=== PATIENT | female | born 1995 | race Caucasian/White ===

== ENCOUNTER 2019-05-18 07:12 | Inpatient (IN) ==
--- NOTE | 2019-05-17 08:47 | PAT Medication Instructions ---
Medication Instructions Date of Service May 17, 2019 Home Medications aspirin [Aspir-81] 81 mg PO DAILY doxylamine succinate [Unisom (doxylamine)] 25 mg PO HS insulin NPH isoph U-100 human [Humulin N NPH Insulin KwikPen] 50 unit SUBCUT BID insulin lispro [Admelog SoloStar U-100 Insulin] 23 unit SUBCUT WM ondansetron HCl [Zofran] 4 mg PO BID PRN ASK your prescriber and surgeon aspirin [Aspir-81] 81 mg PO DAILY DO NOT take the morning of surgery insulin lispro [Admelog SoloStar U-100 Insulin] 23 unit SUBCUT WM Take morning of surgery With a small sip of water, OTHERWISE NOTHING TO EAT OR DRINK AFTER MIDNIGHT: ondansetron HCl [Zofran] 4 mg PO BID PRN (if needed) Take evening before surgery doxylamine succinate [Unisom (doxylamine)] 25 mg PO HS insulin NPH isoph U-100 human [Humulin N NPH Insulin KwikPen] 50 unit SUBCUT BID insulin lispro [Admelog SoloStar U-100 Insulin] 23 unit SUBCUT WM ondansetron HCl [Zofran] 4 mg PO BID PRN (if needed) Insulin Dependent Diabetic Patients * Test your blood sugar the morning of surgery * If Blood Sugar is GREATER THAN 150, take HALF of your regular dose of: insulin NPH isoph U-100 human [Humulin N NPH Insulin KwikPen] take 25 units * If Blood Sugar is LESS THAN 150, DO NOT TAKE ANY: insulin NPH isoph U-100 human [Humulin N NPH Insulin KwikPen] Other Notes If you have any questions please call us at [phone] or [phone] or [phone] or [phone]
--- NOTE | 2019-05-17 09:30 | Anesthesiology Consultation ---
Date of Service May 17, 2019 Assessment & Plan (1) Encounter for pre-operative examination: - ASA: Per patient, was on ASA during for increased risk of pre- eclampsia which was discontinued by OB 05/16/19. Chart Review Chart Review: Pending: Refer to Additional Notes / Consult section (pending preop testing (done 05/17/19 [facility])) and Patient seen in Pre Admission Testing Teaching & Discussion Pre-Anesthesia Teaching/Discussion Notes: Instructed NPO after midnight before surgery,except medications with 15 cc of water. Medication instructions provided according to the PAT guidelines. History Surgery Operation Date: 05/18/19 09:10 Proposed Procedures p Primary Low Transverse Section in LD - Kingsley Rodney MD Height/Weight Height: 5 ft 6 in Weight: 130 kg Allergies Allergy/AdvReac Type Severity Reaction Status Date / Time metformin AdvReac Intermediate NAUSEA Verified 05/17/19 09:28 Medications Home Medications Medication Instructions Recorded Confirmed Last Taken aspirin [Aspir-81] 81 mg PO DAILY 05/16/19 05/16/19 Unknown doxylamine succinate [Unisom 25 mg PO HS 05/16/19 05/16/19 Unknown (doxylamine)] insulin NPH isoph U-100 human 50 unit SUBCUT BID 05/16/19 05/16/19 Unknown [Humulin N NPH Insulin KwikPen] insulin lispro [Admelog SoloStar 23 unit SUBCUT WM 05/16/19 05/16/19 Unknown U-100 Insulin] ondansetron HCl [Zofran] 4 mg PO BID PRN 05/16/19 05/16/19 Unknown Past Medical History Medical History Depression Diabetes Type II/diagnosed at age 16 but did not start insulin until Exercise-induced asthma stable GERD (gastroesophageal reflux disease) related Hx of migraines Morbid obesity Exercise / Class Metabolic Activity III < 4 Walking/Shop/Light housework Past Family History Family History Mother Family history of diabetes mellitus Uncle Family history of diabetes mellitus Past Surgical History Surgical History History of colonoscopy History of endoscopic sinus surgery History of esophagogastroduodenoscopy (EGD) History of Isabella fundoplication 7 YEARS AGO Past Anesthesia History No Hx of Anesthesia Complications and No Family Hx of Anesthesia Complications History of PONV No Hx of PONV and Hx of Motion Sickness (occasional) Social History Smoking Status: Former smoker tobacco type: cigarettes Do You Dip or Chew Tobacco: No Smoking End Date: QUIT SMOKING 8 MONTHS AGO Hx Alcohol Use: No Hx Substance Use: No substance use type: does not use Review of Systems URI symptoms significantly improved. Mild residual, dry cough. Patient denies chest pain, shortness of breath, cough, wheezing, palpitations. Physical Exam Vital Signs VITALS BP 135/84 P 94 TEMP 98.3 SP02 96%ra RESP 16 PHYSICAL Full neck and c-spine range of motion. Full TMJ range of motion. TMD 4 finger breaths Mallampati Score 1 Dentition: intact Lungs: clear throughout to auscultation Cardiac: regular rate and rhythm, no murmurs noted Spine: normal Carotid arteries: negative bruit Extremities: no edema Large tonsils Short, thick neck
[2019-05-17 10:39] LABS: Basophils # (auto) 0.01 K/uL (0-0.2); Basophils % (auto) 0.1 %; Eosinophils # (auto) 0.02 K/uL (0-0.5); Eosinophils % (auto) 0.2 %; Hematocrit (blood only) 38.5 % (37-47); Hemoglobin 13.2 g/dL (12.0-16.0); Immature Granulocytes # (auto) 0.02 K/uL (0.00-0.02); Immature Granulocytes % (auto) 0.2 %; Lymphocytes # (auto) 1.64 K/uL (1.2-3.4); Lymphocytes % (auto) 20.4 %; Mean Corpuscular Hemoglobin 28.7 pg (25-34); Mean Corpuscular Hgb Conc 34.3 g/dL (32-36); Mean Corpuscular Volume 83.7 fL (80-100); Monocytes # (auto) 0.57 K/uL (0.11-0.59); Monocytes % (auto) 7.1 %; Neutrophils # (auto) 5.79 K/uL (1.4-6.5); Platelet Count 183 K/uL (130-400); RDW Coefficient of Variation 13.4 % (11.5-14.5); RDW Standard Deviation 40.4 fL (36.4-46.3); White Blood Count 8.05 K/uL (4.8-10.8)
[2019-05-17 10:43] LABS: Albumin Level 2.5 gm/dl (3.4-5.0); BUN Creatinine Ratio 22.3 (10-20); Creatinine Clr Calc Pharmacy 169.4 ml/min; Est GFR (African American) 137.8; Est GFR (Non-African American) 118.9; Potassium 4.1 mmol/L (3.5-5.1)
[2019-05-17 10:46] LABS: Albumin Globulin Ratio 0.6 (0.9-2); Bilirubin,Total 0.5 mg/dl (0.2-1); Total Protein 6.5 gm/dl (6.4-8.2)
[2019-05-17 11:12] LABS: Estimated Average Glucose 186 mg/dl; Hemoglobin A1C 8.1 % (4.5-5.6)
[~2019-05-18 07:12] MED LIST: CEFAZOLIN 3,000 MG in DEXTROSE 5% 50 ML IV SCH; CITRIC ACID/SODIUM CITRATE 15 ML UDC PO SCH; LACTATED RINGER'S 1,000 ML IV SCH
--- NOTE | 2019-05-18 07:45 | History & Physical Bridge Note ---
Date of Service May 18, 2019 History & Physical Bridge Note I have examined the patient, reviewed the History & Physical and in the interval since the performance of the History & Physical I have noted the following changes of clinical significance: no changes noted
[2019-05-18] MEDS ORDERED: LACTATED RINGER'S 1,000 ML IV SCH ×3 (08:15→12:43)
[2019-05-18 08:40] LABS: Basophils # (auto) 0.01 K/uL (0-0.2); Basophils % (auto) 0.1 %; Eosinophils # (auto) 0.04 K/uL (0-0.5); Eosinophils % (auto) 0.5 %; Hematocrit (blood only) 37.9 % (37-47); Hemoglobin 12.9 g/dL (12.0-16.0); Immature Granulocytes # (auto) 0.03 K/uL (0.00-0.02); Immature Granulocytes % (auto) 0.3 %; Lymphocytes # (auto) 1.87 K/uL (1.2-3.4); Lymphocytes % (auto) 21.2 %; Mean Corpuscular Hemoglobin 28.5 pg (25-34); Mean Corpuscular Volume 83.8 fL (80-100); Mean Platelet Volume 10.7 fL (7.4-10.4); Monocytes # (auto) 0.87 K/uL (0.11-0.59); Monocytes % (auto) 9.8 %; Neutrophils # (auto) 6.02 K/uL (1.4-6.5); Neutrophils % (auto) 68.1 %; Platelet Count 169 K/uL (130-400); RDW Coefficient of Variation 13.5 % (11.5-14.5); RDW Standard Deviation 40.4 fL (36.4-46.3); Red Blood Count 4.52 M/uL (4.2-5.4); White Blood Count 8.84 K/uL (4.8-10.8)
[2019-05-18] MEDS ORDERED: CEFAZOLIN 3000MG 65 ML IV SCH (09:00)
[2019-05-18] MEDS ORDERED: MoRPHine SULFATE PF 1 MG/ML 10 ML AMP/VIAL ONE (10:33)
[2019-05-18] MEDS ORDERED: OXYTOCIN 10 UNITS/ML VIAL ONE (11:56)
[2019-05-18] MEDS ORDERED: ePHEDrine sulfate 50 MG/ML AMP ONE (11:56)
[2019-05-18] MEDS ORDERED: ONDANSETRON INJ 2 MG/ML 2 ML VIAL ONE (11:57)
[2019-05-18] MEDS ORDERED: PHENYLEPHRINE HCL 10 MG/ML VIAL ONE (11:57)
--- NOTE | 2019-05-18 12:09 | Post Operative Brief Note ---
Immediate Post Op Note v1 Date of Surgery May 18, 2019 Pre & Post Diagnosis Operation Date: 05/18/19 09:10 <No data on this case meets the specified criteria> I identified the patient and participated in the time-out.: Yes Procedure Operation Date: 05/18/19 09:10 <No data on this case meets the specified criteria> Surgeon Kingsley Rodney MD Baler Operator Vielka MULTANI Estimated Blood Loss 600 Findings Consistent with Post-Op Diagnosis
[2019-05-18] MEDS ORDERED: NALOXONE HCL 0.4 MG/1 ML VIAL/CARP IV PRN (12:21)
[2019-05-18] MEDS ORDERED: HYDROmorphone INJ 0.5 MG/0.5 ML SYR IV PRN (12:21)
[2019-05-18] MEDS ORDERED: ePHEDrine sulfate 50 MG/ML AMP IV PRN (12:21)
[2019-05-18] MEDS ORDERED: MoRPHine SULFATE PF 1 MG/ML 10 ML AMP/VIAL INT SPINAL ONE (12:21)
[2019-05-18] MEDS ORDERED: PROMETHAZINE HCL 25 MG in SODIUM CHLORIDE 0.9% 50 ML IV PRN (12:21)
[2019-05-18] MEDS ORDERED: NALOXONE HCL 1 MG in SODIUM CHLORIDE 0.9% 1000ML 1,000 ML IV PRN (12:21)
[2019-05-18] MEDS ORDERED: NALOXONE HCL 0.08 MG in SYRINGE 1.8 ML IV PRN (12:21)
[2019-05-18] MEDS ORDERED: MEPERIDINE HCL 25 MG/ML CARP IV PRN (12:21)
[2019-05-18] MEDS ORDERED: MoRPHine SULFATE 2 MG/ML CARP IV PRN (12:21)
[2019-05-18] MEDS ORDERED: METOCLOPRAMIDE HCL 20 MG in SODIUM CHLORIDE 0.9% 50 ML IV PRN (12:21)
[2019-05-18] MEDS ORDERED: LACTATED RINGER'S 500 ML IV PRN (12:21)
[2019-05-18] MEDS ORDERED: ONDANSETRON INJ 2 MG/ML 2 ML VIAL IV PRN (12:21)
[2019-05-18] MEDS ORDERED: SODIUM CHLORIDE 0.9% 1000ML 1,000 ML IV SCH (12:30)
[2019-05-18] MEDS ORDERED: DC INTRASPINAL MORPHINE SCH (12:30)
[2019-05-18] MEDS ORDERED: NO NARCOTICS OR SEDATIVES SCH (12:30)
[2019-05-18] MEDS ORDERED: SENNA 8.6 MG TAB PO PRN (12:43)
[2019-05-18] MEDS ORDERED: MAGNESIUM HYDROXIDE SUSP 30 ML UDC PO PRN (12:43)
[2019-05-18] MEDS ORDERED: BENZOCAINE 20% AER SPR 82.5 GM CAN EXT PRN (12:43)
[2019-05-18] MEDS ORDERED: SUPERCREAM 0.870% 15 GM JAR EXT PRN (12:43)
[2019-05-18] MEDS ORDERED: DIPHTHERIA/TETANUS/PERTUSSIS 0.5 ML SYR/VIAL IM ONE (12:43)
[2019-05-18] MEDS ORDERED: HYDROCORTISONE ACETATE 25 MG SUPP PR PRN (12:43)
[2019-05-18] MEDS ORDERED: PHARMACY GLYCEMIC MGMT CONSULT PRN (12:47)
[2019-05-18] MEDS: KETOROLAC 30 MG/ML VIAL IV PRN ×2 (12:55→22:28)
[2019-05-18] MEDS: DiphenhydrAMINE HCL 50 MG/ML VIAL IV PRN ×2 (12:55→18:34)
[2019-05-18] MEDS ORDERED: DEXTROSE 50% 50 ML SYRINGE IV PRN (13:00)
[2019-05-18] MEDS ORDERED: GLUCOSE 10 TABS/TUBE PO PRN (13:00)
[2019-05-18] MEDS ORDERED: GLUCAGON FOR INJ 1 MG VIAL SQ PRN (13:00)
[2019-05-18] MEDS ORDERED: CARBOHYDRATES FOR HYPOGLYCEMIA PO PRN (13:00)
[2019-05-18] MEDS ORDERED: GLUCOSE 40% GEL 15 GM TUBE PO PRN (13:00)
--- NOTE | 2019-05-18 13:12 | Anesthesiology Progress Note ---
Date of Service May 18, 2019 Anesthesia Post Procedure Vital Signs Vital Signs: Temp Pulse Resp BP Pulse Ox 05/18/19 13:08 76 98 05/18/19 13:07 75 122/65 05/18/19 13:03 73 98 05/18/19 12:58 75 98 05/18/19 12:57 77 128/68 05/18/19 12:53 83 97 05/18/19 12:48 82 97 05/18/19 12:47 87 125/62 05/18/19 12:43 79 97 05/18/19 12:38 78 97 05/18/19 12:37 88 135/64 05/18/19 12:33 84 98 05/18/19 12:28 81 97 05/18/19 12:27 75 121/65 05/18/19 12:23 86 96 05/18/19 12:18 85 97 05/18/19 12:13 89 132/64 96 05/18/19 08:38 37.0 C 93 H 22 134/85 05/18/19 07:38 37.0 C 93 H 22 134/85 Transfer of Care Handoff Completed per policy Notes Mental Status: alert / awake / arousable and participated in evaluation Patient Amnestic to Procedure: Yes Nausea / Vomiting: adequately controlled Pain: adequately controlled Airway Patency, RR, SpO2: stable & adequate BP & HR: stable & adequate Hydration State: stable & adequate Neuraxial Anesthesia: was administered and sensory block is resolving Anesthetic Complications: no major complications apparent
--- NOTE | 2019-05-18 14:15 | Operative Report ---
DATE OF OPERATION: 05/18/2019 PREOPERATIVE DIAGNOSIS: Primary section for macrosomia. POSTOPERATIVE DIAGNOSIS: Primary section for macrosomia. PROCEDURE: Primary section, low segment transverse. SURGEON: Kingsley Rodney MD. RETAIL ZONE SPECIALIST: RANGEL Washington. ANESTHESIA: Spinal with Duramorph. COMPLICATIONS: None. FINDINGS: Live male, Apgars 9 and 9, weight 10 pounds 2 ounces CLINICAL HISTORY DESCRIPTION: The patient is a 24-year-old female, para 0-0-0-0, at 39 weeks and 1 day with a history of pregestational diabetes, on insulin with a recent ultrasound revealing macrosomia almost greater than 4500 grams. The patient opted for elective primary section versus a trial of labor. The patient was given informed consent regarding the risks, benefits and alternatives of both procedures. She was given antibiotics preop and a timeout was called prior to the start of the procedure. DESCRIPTION OF PROCEDURE: Under satisfactory spinal anesthesia, the patient was prepped and draped in the usual sterile fashion. A low Pfannenstiel incision was made entering into the abdominal cavity in successive layers. Upon entering into the abdominal layers, pickups with teeth and Metzenbaums were then used to develop a bladder flap. This was then sharply dissected down. A low segment transverse incision over the lower uterine segment was made. The incision was then widened in the AP diameter. The amniotic sac was nicked and found to be clear fluid. The was then delivered from the vertex presentation with the aid of fundal pressure delivering a live male. Delayed cord clamping was accomplished using 1-minute time. Apgars were 9 and 9, and weight was 10 pounds 2 ounces. Cord blood was obtained. Placenta was then delivered manually and intact. Uterus was then exteriorized. Ring forceps were then placed on both angles in the inferior margin, another ring was used to dilate the cervix. Uterus was closed in a double layer closure with 0 Vicryl suture in a continuous interlocking fashion followed by a second imbricating suture of 0 Vicryl suture. No active bleeding was noted. Tubes, ovaries bilaterally were found to be within normal limits. Contents of the pelvic and abdominal cavity were then irrigated until clear. Lower uterine segment was inspected, no active bleeding. Uterus was placed back into the normal anatomical position. No active bleeding noted. The fascia was then reapproximated from both ends using #1 Vicryl suture in a continuous fashion. Subcuticular space was irrigated. Bleeders were cauterized and the subcuticular layer was closed with 3-0 plain suture and the skin was then reapproximated with 4-0 Monocryl suture. Steri-Strips were applied along with SYLIWA dressing. Clear urine was noted from the [facility]. Estimated blood loss 600 mL. The final sponge, needle and instrument counts being correct, the patient was then placed supine on a stretcher and taken to recovery room in stable condition. I attest to the content of the Intraoperative Record and any orders documented therein. Any exception s are noted below.
[2019-05-18] MEDS: SIMETHICONE 80 MG CHEW PO SCH ×2 (14:19→20:47)
[2019-05-18] MEDS: NALBUPHINE HCL INJ 10 MG/ML AMP IV PRN (14:29)
--- NOTE | 2019-05-18 15:17 | Pharmacy Report ---
Glycemic Control Consultation - Date of Service May 18, 2019 - Scope Scope: Glycemic Pharmacist consulted by BONITA Washington on 05/18 for glycemic control and to write orders per [facility] inpatient glycemic control protocol - Objective Weight: 129.964 kg Accuchecks BSG (last 24hrs): 05/18/19 05/18/19 07:53 12:06 POC Glucose 104 H 102 H HbA1c: Hemoglobin A1c 8.1 % (4.5-5.6) H 05/17/19 09:35 - Recent Pertinent Medications Outpatient Anti-diabetic Regimen: * Regimen during : * NPH 50 units BID * Admelog 23 units with meals * Regimen pre-: * None; although patient reports being on metformin and then glipizide prior to this * A1c = 8.1 % 05/17/19 * Somewhat unreliable as this was during Risk Factors for Insulin Resistance: * Recent Surgery: POD 0 s/p * Diet: NPO - Assessment & Plan Assessment & Plan: ASSESSMENT: * 24 y/o female, para 0-0-0-0, admitted for elective , at 39 wks 1 day with history of T2DM. She reports taking basal/bolus insulin during , that was initiated when . Pre- diabetes treatment includes a few trials of orals (metformin and then glipizide 10 mg) and then not taking anything due to not having follow-up. She currently follows with the [facility] clinic at [facility]. * Anticipate little to no insulin needs 24 hours after delivery, although not as drastic of a reduction that is typically seen after laboring. Patient plans to breastfeed so this will increase insulin sensitivity even more. * Will plan for correctional insulin only for now, with overnight checks to closely monitor BSGs. Conservative basal dosing to be initiated only if BSGs become elevated. PLAN FOR INPATIENT GLYCEMIC CONTROL: * Basal insulin - hold during immediate period * If BSGs 180 mg/dL x 2, give Lantus 15 units x 1 * Bolus insulin * NovoLog per scale ACHS or Q6hrs while NPO + 00,04 checks * Goal Range: Low 110 mg/dL - High 140 mg/dL * Correction Factor: 25 mg/dL/unit * Nutritional / Prandial insulin per carb ratio of 1 unit per - grams CHO consumed * Please note that the plan above was derived based on current level of insulin resistance and hospital stress. These recommendations are appropriate for inpatient admission only. Plan of care upon discharge will need to be reassessed to avoid potential outpatient hypo/hyperglycemia. Thank you.
[2019-05-18] MEDS: INSULIN ASPART 100 UNITS/ML 3 ML PEN SC SCH ×2 (17:26→22:10)
[2019-05-18] MEDS: OXYTOCIN 20 UNITS in LACTATED RINGER'S 1,000 ML IV SCH (19:22)
[2019-05-18] MEDS: DOCUSATE SODIUM 100 MG CAP PO SCH (20:46)
[2019-05-19] MEDS: NALBUPHINE HCL INJ 10 MG/ML AMP IV PRN (01:36)
[2019-05-19] MEDS ORDERED: INSULIN ASPART 100 UNITS/ML 3 ML PEN SC ONE (02:00)
[2019-05-19] MEDS: OXYTOCIN 20 UNITS in LACTATED RINGER'S 1,000 ML IV SCH (03:39)
[2019-05-19] MEDS ORDERED: ONDANSETRON 4 MG TAB PO PRN (06:22)
[2019-05-19] MEDS ORDERED: PROMETHAZINE HCL 25 MG in SODIUM CHLORIDE 0.9% 50 ML IV PRN (06:22)
[2019-05-19] MEDS ORDERED: KETOROLAC 30 MG/ML VIAL IV PRN (06:22)
[2019-05-19] MEDS ORDERED: DiphenhydrAMINE HCL 50 MG/ML VIAL IV PRN (06:22)
[2019-05-19] MEDS ORDERED: ONDANSETRON INJ 2 MG/ML 2 ML VIAL IV PRN (06:22)
[2019-05-19] MEDS: OXYCODONE/ACETAMINOPHEN 5mg/325mg TAB PO PRN ×4 (07:29→21:17)
[2019-05-19] MEDS: IBUPROFEN 600 MG TAB PO PRN ×4 (07:29→21:17)
[2019-05-19] MEDS: INSULIN ASPART 100 UNITS/ML 3 ML PEN SC SCH ×4 (07:30→21:17)
[2019-05-19 07:57] LABS: Basophils # (auto) 0.01 K/uL (0-0.2); Basophils % (auto) 0.1 %; Eosinophils # (auto) 0.06 K/uL (0-0.5); Eosinophils % (auto) 0.8 %; Hemoglobin 11.8 g/dL (12.0-16.0); Immature Granulocytes # (auto) 0.01 K/uL (0.00-0.02); Immature Granulocytes % (auto) 0.1 %; Lymphocytes # (auto) 1.64 K/uL (1.2-3.4); Lymphocytes % (auto) 21.1 %; Mean Corpuscular Hemoglobin 28.4 pg (25-34); Mean Corpuscular Hgb Conc 33.7 g/dL (32-36); Mean Corpuscular Volume 84.1 fL (80-100); Mean Platelet Volume 10.2 fL (7.4-10.4); Monocytes # (auto) 0.52 K/uL (0.11-0.59); Monocytes % (auto) 6.7 %; Neutrophils # (auto) 5.55 K/uL (1.4-6.5); Neutrophils % (auto) 71.2 %; Platelet Count 157 K/uL (130-400); RDW Coefficient of Variation 13.6 % (11.5-14.5); RDW Standard Deviation 41.8 fL (36.4-46.3); Red Blood Count 4.16 M/uL (4.2-5.4); White Blood Count 7.79 K/uL (4.8-10.8)
[2019-05-19] MEDS ORDERED: ASPIRIN 81 MG ECTAB PO SCH (09:00)
--- NOTE | 2019-05-19 09:11 | Pharmacy Report ---
Pharmacy Glycemic Short Note 2 - Date of Service May 19, 2019 - Glycemic Short BSG Results (Last 24 hours): 05/18/19 05/18/19 05/18/19 07:53 12:06 17:13 POC Glucose 104 H 102 H 97 05/18/19 05/19/19 05/19/19 21:38 01:26 07:23 POC Glucose 97 79 93 OUTPATIENT ANTIDIABETIC REGIMEN: * Regimen during : * NPH 50 units BID * Admelog 23 units with meals * Regimen pre-: * None; although patient reports being on metformin and then glipizide prior to this * A1c = 8.1 % 05/17/19 * Somewhat unreliable as this was during ASSESSMENT: 05/19 * POD 1 s/p * All BSGs below 110 mg/dL, not requiring any insulin * Will continue with correctional insulin only. No need for basal at this point. * Spoke with Mildred at [facility] to determine plan for dis charge. Will send patient home on sliding scale Admelog ONLY, with f/u over the phone on Wednesday. 05/18 * 24 y/o female, para 0-0-0-0, admitted for elective , at 39 wks 1 day with history of T2DM. She reports taking basal/bolus insulin during , that was initiated when . Pre- diabetes treatment includes a few trials of orals (metformin and then glipizide 10 mg) and then not taking anything due to not having follow-up. She currently follows with the [facility] at [facility]. * Anticipate little to no insulin needs 24 hours after delivery, although not as drastic of a reduction that is typically seen after laboring. Patient plans to breastfeed so this will increase insulin sensitivity even more. * Will plan for correctional insulin only for now, with overnight checks to closely monitor BSGs. Conservative basal dosing to be initiated only if BSGs become elevated. PLAN FOR INPATIENT GLYCEMIC CONTROL: * Basal insulin - continue to hold, remove pending orders to start if BSG elevated * Bolus insulin * NovoLog per scale ACHS or Q6hrs while NPO * Goal Range: Low 110 mg/dL - High 140 mg/dL * Correction Factor: 25 mg/dL/unit * Nutritional / Prandial insulin per carb ratio of 1 unit per -- grams CHO consumed PLAN FOR DISCHARGE: * Admelog ACHS per sliding scale using CF 25 mg/dL/unit for BSG > 175 mg/dL * CDE to provide scale to patient and review with her * No NPH for now * Jeff BROWN to f/u with patient over the phone on Wednesday, if discharged over the weekend
[2019-05-19] MEDS: DOCUSATE SODIUM 100 MG CAP PO SCH ×2 (09:21→21:14)
[2019-05-19] MEDS: SIMETHICONE 80 MG CHEW PO SCH ×4 (09:21→21:14)
[2019-05-19] MEDS: FERROUS SULFATE 325 MG TAB PO SCH (09:21)
[2019-05-19] MEDS: PRENATAL VITAMIN 1 TAB PO SCH (09:21)
--- NOTE | 2019-05-19 12:08 | Obstetrical Progress Note ---
Date of Service May 19, 2019 Subjective Patient is seen and examined. She feels well, no complaints. Pain is under control with oral meds. Ambulating without dizziness Voiding without difficulty Tolerating regular diet with out N&V Flatus + BM neg Bleeding is minimal No fever/ chills/ CP/ SOB/ N&V/ Leg pain Breast feeding without problems Vital Signs Temp Pulse Pulse Resp BP BP Pulse Ox 05/19/19 06:00 16 98 05/19/19 05:16 18 98 05/19/19 03:40 36.5 C 79 16 114/75 97 05/19/19 03:00 16 97 05/19/19 02:00 16 96 05/19/19 01:00 16 98 05/19/19 00:00 18 97 05/18/19 23:00 18 98 05/18/19 22:30 36.6 C 86 18 122/78 95 05/18/19 22:00 18 98 05/18/19 21:00 17 97 05/18/19 20:30 36.6 C 87 16 126/79 96 05/18/19 19:00 16 97 05/18/19 18:00 36.6 C 79 18 125/80 97 05/18/19 17:00 85 18 150/83 H 97 05/18/19 15:55 36 C L 93 H 18 146/81 H 98 05/18/19 15:38 76 97 05/18/19 15:37 78 133/58 L 05/18/19 15:33 77 98 05/18/19 15:28 87 98 05/18/19 15:27 95 H 137/68 05/18/19 15:23 77 97 05/18/19 15:22 77 94 05/18/19 15:18 85 99 05/18/19 15:17 90 139/67 05/18/19 15:13 88 99 05/18/19 15:08 80 141/67 H 99 05/18/19 15:03 79 99 05/18/19 14:58 82 99 05/18/19 14:57 90 145/72 H 05/18/19 14:53 78 99 05/18/19 14:48 86 99 05/18/19 14:47 75 145/73 H 05/18/19 14:43 89 98 05/18/19 14:38 76 150/70 H 98 05/18/19 14:33 74 98 05/18/19 14:28 87 98 05/18/19 14:27 87 148/67 H 05/18/19 14:23 88 97 05/18/19 14:18 75 98 05/18/19 14:17 86 124/62 05/18/19 14:13 73 97 05/18/19 14:08 81 97 05/18/19 14:07 72 127/70 05/18/19 14:03 85 98 05/18/19 13:58 91 H 98 05/18/19 13:57 86 125/73 05/18/19 13:53 87 100 05/18/19 13:48 84 97 05/18/19 13:47 74 128/75 05/18/19 13:45 18 05/18/19 13:43 71 98 05/18/19 13:38 79 98 05/18/19 13:37 74 129/71 05/18/19 13:33 82 97 05/18/19 13:28 90 99 05/18/19 13:27 88 126/72 05/18/19 13:23 75 98 05/18/19 13:18 74 98 05/18/19 13:17 75 125/72 05/18/19 13:15 36.5 C 20 05/18/19 13:13 74 97 05/18/19 13:08 76 98 05/18/19 13:07 75 122/65 05/18/19 13:03 73 98 05/18/19 12:58 75 98 05/18/19 12:57 77 128/68 05/18/19 12:53 83 97 05/18/19 12:48 82 97 05/18/19 12:47 87 125/62 05/18/19 12:43 79 97 05/18/19 12:38 78 97 05/18/19 12:37 88 135/64 05/18/19 12:33 84 98 05/18/19 12:28 81 97 05/18/19 12:27 75 121/65 05/18/19 12:25 16 05/18/19 12:23 86 96 05/18/19 12:18 85 97 05/18/19 12:15 36.6 C 20 05/18/19 12:13 89 132/64 96 Intake and Output 05/18/19 05/19/19 05/19/19 22:59 06:59 14:59 Intake Total 1502.00 / 1502.00 802 / 802 Output Total 150 / 1150 750 / 1150 1100 / 1100 Balance -150 / 352.00 752.00 / 352.00 -298 / -298 Intake: IV 1002.00 / 1002.00 802 / 802 Pitocin 20 Units In Lr 1,000 ml 1002.00 / 1002.00 802 / 802 @ 125 mls/hr IV .Q8H1M [facility] Rx# :[id number] Oral 500 / 500 Output: Urine 900 / 900 Urine Amount (Catheter) 150 / 1150 750 / 1150 200 / 200 [place]/Indwelling 150 / 1150 750 / 1150 200 / 200 Lab Results 05/17/19 05/17/19 05/17/19 Range/Units 09:35 09:35 09:35 WBC 8.05 (4.8-10.8) K/uL RBC 4.60 (4.2-5.4) M/uL Hgb 13.2 (12.0-16.0) g/dL Hct 38.5 (37-47) % MCV 83.7 (80-100) fL MCH 28.7 (25-34) pg MCHC 34.3 (32-36) g/dL RDW Std Deviation 40.4 (36.4-46.3) fL RDW Coeff of Luzma 13.4 (11.5-14.5) % Plt Count 183 (130-400) K/uL MPV 11.0 H (7.4-10.4) fL Immature Gran % (Auto) 0.2 % Neut % (Auto) 72.0 % Lymph % (Auto) 20.4 % [place] % (Auto) 7.1 % Eos % (Auto) 0.2 % Baso % (Auto) 0.1 % Immature Gran # (Auto) 0.02 (0.00-0.02) K/uL Neut # (Auto) 5.79 (1.4-6.5) K/uL Lymph # (Auto) 1.64 (1.2-3.4) K/uL [place] # (Auto) 0.57 (0.11-0.59) K/uL Eos # (Auto) 0.02 (0-0.5) K/uL Baso # (Auto) 0.01 (0-0.2) K/uL Sodium 138 (136-145) mmol/L Potassium 4.1 (3.5-5.1) mmol/L Chloride 107 (98-107) mmol/L Carbon Dioxide 22 (21-32) mmol/L Anion Gap 9.0 (3-11) BUN 16 (7-18) mg/dl Creatinine 0.72 (0.6-1.2) mg/dl Est Cr Clr Drug Dosing 169.4 ml/min Est GFR ( Amer) 137.8 Est GFR (Non-Af Amer) 118.9 BUN/Creatinine Ratio 22.3 H (10-20) Glucose 157 H (70-99) mg/dl POC Glucose (70-99) Estimat Average Glucose 186 mg/dl Hemoglobin A1c 8.1 H (4.5-5.6) % Calcium 9.0 (8.5-10.1) mg/dl Total Bilirubin 0.5 (0.2-1) mg/dl AST 14 L (15-37) U/L ALT 16 (12-78) U/L Alkaline Phosphatase 127 H (45-117) U/L Total Protein 6.5 (6.4-8.2) gm/dl Albumin 2.5 L (3.4-5.0) gm/dl Globulin 4.0 (2.5-4.0) gm/dl Albumin/Globulin Ratio 0.6 L (0.9-2) Blood Type Antibody Screen Screen 05/17/19 05/18/19 05/18/19 Range/Units 09:35 07:53 08:29 WBC 8.84 (4.8-10.8) K/uL RBC 4.52 (4.2-5.4) M/uL Hgb 12.9 (12.0-16.0) g/dL Hct 37.9 (37-47) % MCV 83.8 (80-100) fL MCH 28.5 (25-34) pg MCHC 34.0 (32-36) g/dL RDW Std Deviation 40.4 (36.4-46.3) fL RDW Coeff of Luzma 13.5 (11.5-14.5) % Plt Count 169 (130-400) K/uL MPV 10.7 H (7.4-10.4) fL Immature Gran % (Auto) 0.3 % Neut % (Auto) 68.1 % Lymph % (Auto) 21.2 % [place] % (Auto) 9.8 % Eos % (Auto) 0.5 % Baso % (Auto) 0.1 % Immature Gran # (Auto) 0.03 H (0.00-0.02) K/uL Neut # (Auto) 6.02 (1.4-6.5) K/uL Lymph # (Auto) 1.87 (1.2-3.4) K/uL [place] # (Auto) 0.87 H (0.11-0.59) K/uL Eos # (Auto) 0.04 (0-0.5) K/uL Baso # (Auto) 0.01 (0-0.2) K/uL Sodium (136-145) mmol/L Potassium (3.5-5.1) mmol/L Chloride (98-107) mmol/L Carbon Dioxide (21-32) mmol/L Anion Gap (3-11) BUN (7-18) mg/dl Creatinine (0.6-1.2) mg/dl Est Cr Clr Drug Dosing ml/min Est GFR ( Amer) Est GFR (Non-Af Amer) BUN/Creatinine Ratio (10-20) Glucose (70-99) mg/dl POC Glucose 104 H (70-99) Estimat Average Glucose mg/dl Hemoglobin A1c (4.5-5.6) % Calcium (8.5-10.1) mg/dl Total Bilirubin (0.2-1) mg/dl AST (15-37) U/L ALT (12-78) U/L Alkaline Phosphatase (45-117) U/L Total Protein (6.4-8.2) gm/dl Albumin (3.4-5.0) gm/dl Globulin (2.5-4.0) gm/dl Albumin/Globulin Ratio (0.9-2) Blood Type B Negative Antibody Screen NEGATIVE Screen 05/18/19 05/18/19 05/18/19 Range/Units 12:06 17:13 21:38 WBC (4.8-10.8) K/uL RBC (4.2-5.4) M/uL Hgb (12.0-16.0) g/dL Hct (37-47) % MCV (80-100) fL MCH (25-34) pg MCHC (32-36) g/dL RDW Std Deviation (36.4-46.3) fL RDW Coeff of Luzma (11.5-14.5) % Plt Count (130-400) K/uL MPV (7.4-10.4) fL Immature Gran % (Auto) % Neut % (Auto) % Lymph % (Auto) % [place] % (Auto) % Eos % (Auto) % Baso % (Auto) % Immature Gran # (Auto) (0.00-0.02) K/uL Neut # (Auto) (1.4-6.5) K/uL Lymph # (Auto) (1.2-3.4) K/uL [place] # (Auto) (0.11-0.59) K/uL Eos # (Auto) (0-0.5) K/uL Baso # (Auto) (0-0.2) K/uL Sodium (136-145) mmol/L Potassium (3.5-5.1) mmol/L Chloride (98-107) mmol/L Carbon Dioxide (21-32) mmol/L Anion Gap (3-11) BUN (7-18) mg/dl Creatinine (0.6-1.2) mg/dl Est Cr Clr Drug Dosing ml/min Est GFR ( Amer) Est GFR (Non-Af Amer) BUN/Creatinine Ratio (10-20) Glucose (70-99) mg/dl POC Glucose 102 H 97 97 (70-99) Estimat Average Glucose mg/dl Hemoglobin A1c (4.5-5.6) % Calcium (8.5-10.1) mg/dl Total Bilirubin (0.2-1) mg/dl AST (15-37) U/L ALT (12-78) U/L Alkaline Phosphatase (45-117) U/L Total Protein (6.4-8.2) gm/dl Albumin (3.4-5.0) gm/dl Globulin (2.5-4.0) gm/dl Albumin/Globulin Ratio (0.9-2) Blood Type Antibody Screen Screen 05/19/19 05/19/19 05/19/19 Range/Units 01:26 07:23 07:44 WBC (4.8-10.8) K/uL RBC (4.2-5.4) M/uL Hgb (12.0-16.0) g/dL Hct (37-47) % MCV (80-100) fL MCH (25-34) pg MCHC (32-36) g/dL RDW Std Deviation (36.4-46.3) fL RDW Coeff of Luzma (11.5-14.5) % Plt Count (130-400) K/uL MPV (7.4-10.4) fL Immature Gran % (Auto) % Neut % (Auto) % Lymph % (Auto) % [place] % (Auto) % Eos % (Auto) % Baso % (Auto) % Immature Gran # (Auto) (0.00-0.02) K/uL Neut # (Auto) (1.4-6.5) K/uL Lymph # (Auto) (1.2-3.4) K/uL [place] # (Auto) (0.11-0.59) K/uL Eos # (Auto) (0-0.5) K/uL Baso # (Auto) (0-0.2) K/uL Sodium (136-145) mmol/L Potassium (3.5-5.1) mmol/L Chloride (98-107) mmol/L Carbon Dioxide (21-32) mmol/L Anion Gap (3-11) BUN (7-18) mg/dl Creatinine (0.6-1.2) mg/dl Est Cr Clr Drug Dosing ml/min Est GFR ( Amer) Est GFR (Non-Af Amer) BUN/Creatinine Ratio (10-20) Glucose (70-99) mg/dl POC Glucose 79 93 (70-99) Estimat Average Glucose mg/dl Hemoglobin A1c (4.5-5.6) % Calcium (8.5-10.1) mg/dl Total Bilirubin (0.2-1) mg/dl AST (15-37) U/L ALT (12-78) U/L Alkaline Phosphatase (45-117) U/L Total Protein (6.4-8.2) gm/dl Albumin (3.4-5.0) gm/dl Globulin (2.5-4.0) gm/dl Albumin/Globulin Ratio (0.9-2) Blood Type Cancelled Antibody Screen Cancelled Screen Cancelled 05/19/19 05/19/19 Range/Units 07:44 11:23 WBC 7.79 (4.8-10.8) K/uL RBC 4.16 L (4.2-5.4) M/uL Hgb 11.8 L (12.0-16.0) g/dL Hct 35.0 L (37-47) % MCV 84.1 (80-100) fL MCH 28.4 (25-34) pg MCHC 33.7 (32-36) g/dL RDW Std Deviation 41.8 (36.4-46.3) fL RDW Coeff of Luzma 13.6 (11.5-14.5) % Plt Count 157 (130-400) K/uL MPV 10.2 (7.4-10.4) fL Immature Gran % (Auto) 0.1 % Neut % (Auto) 71.2 % Lymph % (Auto) 21.1 % [place] % (Auto) 6.7 % Eos % (Auto) 0.8 % Baso % (Auto) 0.1 % Immature Gran # (Auto) 0.01 (0.00-0.02) K/uL Neut # (Auto) 5.55 (1.4-6.5) K/uL Lymph # (Auto) 1.64 (1.2-3.4) K/uL [place] # (Auto) 0.52 (0.11-0.59) K/uL Eos # (Auto) 0.06 (0-0.5) K/uL Baso # (Auto) 0.01 (0-0.2) K/uL Sodium (136-145) mmol/L Potassium (3.5-5.1) mmol/L Chloride (98-107) mmol/L Carbon Dioxide (21-32) mmol/L Anion Gap (3-11) BUN (7-18) mg/dl Creatinine (0.6-1.2) mg/dl Est Cr Clr Drug Dosing ml/min Est GFR ( Amer) Est GFR (Non-Af Amer) BUN/Creatinine Ratio (10-20) Glucose (70-99) mg/dl POC Glucose 160 H (70-99) Estimat Average Glucose mg/dl Hemoglobin A1c (4.5-5.6) % Calcium (8.5-10.1) mg/dl Total Bilirubin (0.2-1) mg/dl AST (15-37) U/L ALT (12-78) U/L Alkaline Phosphatase (45-117) U/L Total Protein (6.4-8.2) gm/dl Albumin (3.4-5.0) gm/dl Globulin (2.5-4.0) gm/dl Albumin/Globulin Ratio (0.9-2) Blood Type Antibody Screen Screen PE: General: Alert, orientedx3, NAD CVS: S1S2 RRR Lungs; CTAB Abd: soft, NT, ND, BS+, fundus firm, below Umbilicus Dressing: Clean, dry, intact Perineum intact, Lochia rubra minimal Ext; NT, no edema, homans neg/ neg AP: 24 yo s/p C Section, pod# 1 VSS Afebrile doing well Type II Pregestational DM: was on insulin, now on SS insulin per pharmacy, discussed with pharmacist about plan Continue routine postop care Encourage ambulation, PO intake All questions were answered Results & Data Vital Signs (Past 12 Hours) Vital Signs Temp Pulse Resp BP Pulse Ox 05/19/19 06:00 16 98 05/19/19 05:16 18 98 05/19/19 03:40 36.5 C 79 16 114/75 97 05/19/19 03:00 16 97 05/19/19 02:00 16 96 05/19/19 01:00 16 98
--- NOTE | 2019-05-19 12:09 | Obstetrical Progress Note ---
Date of Service May 19, 2019 Results & Data Vital Signs (Past 12 Hours) Vital Signs Temp Pulse Resp BP Pulse Ox 05/19/19 06:00 16 98 05/19/19 05:16 18 98 05/19/19 03:40 36.5 C 79 16 114/75 97 05/19/19 03:00 16 97 05/19/19 02:00 16 96 05/19/19 01:00 16 98
[2019-05-19] MEDS ORDERED: BISACODYL 5 MG TABEC PO SCH (20:00)
[2019-05-20] MEDS: IBUPROFEN 600 MG TAB PO PRN ×5 (02:48→21:55)
[2019-05-20] MEDS: OXYCODONE/ACETAMINOPHEN 5mg/325mg TAB PO PRN ×6 (02:48→21:56)
[2019-05-20] MEDS ORDERED: BISACODYL 10 MG SUPP PR PRN (07:00)
[2019-05-20 07:10] LABS: Hematocrit (blood only) 34.2 % (37-47); Hemoglobin 11.4 g/dL (12.0-16.0)
[2019-05-20] MEDS: INSULIN ASPART 100 UNITS/ML 3 ML PEN SC SCH ×4 (07:44→21:01)
[2019-05-20] MEDS: DOCUSATE SODIUM 100 MG CAP PO SCH ×2 (08:39→21:00)
[2019-05-20] MEDS: SIMETHICONE 80 MG CHEW PO SCH ×4 (08:39→21:00)
[2019-05-20] MEDS: PRENATAL VITAMIN 1 TAB PO SCH (08:39)
--- NOTE | 2019-05-20 08:39 | Obstetrical Progress Note ---
Date of Service May 20, 2019 Physical Exam Physical Exam: abdomen soft and non tender passing flatus bandage is dry no calf tenderness vaginal bleeding scant hgb 11.4 ambulating well Results & Data Vital Signs (Past 12 Hours) Vital Signs Temp Pulse Resp BP Pulse Ox 05/20/19 07:05 36.7 C 100 H 18 122/83 98 05/19/19 23:55 36.6 C 93 H 18 120/93
[2019-05-20] MEDS: FERROUS SULFATE 325 MG TAB PO SCH (08:40)
--- NOTE | 2019-05-20 22:12 | Obstetrical Progress Note ---
Date of Service May 20, 2019 Physical Exam Physical Exam: patient requests discharge is being transported to [facility] [place] no calf tenderness ambulating well Results & Data Vital Signs (Past 12 Hours) Vital Signs Temp Pulse Resp BP Pulse Ox 05/20/19 21:27 36.8 C 94 H 18 123/82 98 05/20/19 16:04 36.8 C 94 H 18 123/82 98 05/20/19 15:00 36.7 C 91 H 14 129/35 L 98
[2019-05-20] MEDS ORDERED: PERCOCET 5/325MG HOMEPACK PO ONE (22:15)
--- NOTE | 2019-05-21 13:18 | Discharge Summary ---
Chuck Mejia was admitted for for uncontrolled diabetes, macrosomia. On the day of admission, she underwent a primary low segment section. Baby weighed over 10 pounds. Postoperatively, the patient did well. She was given preoperative antibiotics. Her postoperative hemoglobin was 11.4, hematocrit 34.2. She requested early discharge on the evening of 05/20/2019 due to the fact that the baby had to be transferred to [facility]. We were able to give her take home pack of Percocet in the hospital 4 tablets and I called in a prescription for 20 tablets of Percocet to [facility] in [place] at the patient's request along with I gave her a prescription for glucometer and strips. She is to call the office on Wednesday to make an appointment to remove the bandage and for followup.
== END 2019-05-21 00:50 | disposition home or self-care (01) | DRG 786 ==
LOC: 4S1 07:12 → EDSTATUS 09:10 → 4S2 15:55